=== PATIENT | male | born 1980 | race Caucasian/White ===

== ENCOUNTER 2020-05-23 18:40 | Emergency (ER) | payer OTHER ==
[~2020-05-23] VITALS: Ht 188 cm; Wt 104.3 kg
[~2020-05-23 18:40] MED LIST: KEFLEX500 MG PO; NO HOME MEDS
[2020-05-23 20:09] VITALS: BP 118/82
== END 2020-05-23 20:00 | disposition short-term general hospital (02) ==
LOC: ER 18:40
DX: T15.01XA Foreign body in cornea, right eye, initial encounter (principal); Z90.49 Acquired absence of other specified parts of digestive tract; Z79.899 Other long term (current) drug therapy; X58.XXXA Exposure to other specified factors, initial encounter; Y93.89 Activity, other specified; Y92.89 Other specified places as the place of occurrence of the external cause; Y99.8 Other external cause status